=== PATIENT | male | born 1970 | race Caucasian/White ===

== ENCOUNTER 2024-12-10 14:30 | Outpatient (RCR) | payer OTHER, SELFPAY | END 2024-12-15 09:06 | disposition home or self-care (01) | LOC: ANHDMC 14:30 | PROVIDERS: Visit Provider Internal Medicine | DX: E11.65 Type 2 diabetes mellitus with hyperglycemia (principal); Z71.89 Other specified counseling | CPT/HCPCS: G0108; G0109 ==

== ENCOUNTER 2024-12-27 09:31 | Outpatient (CLI) | payer OTHER, SELFPAY ==
--- OUTSIDE RECORDS SUMMARY | 2024-12-27 09:35 | XMS_ITS | Data Portability ---
Author Organization [facility], Main Office Address [address] [place] [address] Care Team Providers Care Encapsulator Name Role Phone SUZY QUINTERO Primary Care Provider SUZY QUINTERO Referring Provider Assessment Encounter Date Assessment Date Assessment LastModified by Organization Details LastModified Time 01/30/2023 01/30/2023 This note is dictated and transcribed by [employer]. Legal Practice Manager variances may occur. Despite proofreading, typographical errors may occur. Not available 01/30/2023 14:56:16 08/28/2023 08/28/2023 This note is dictated and transcribed by [employer]. Legal Practice Manager variances may occur. Despite proofreading, typographical errors may occur. Occasional wrong-word or '[id number]' substitutions may have occurred due to the inherent limitations of voice recording. Read the chart carefully and recognize, using context, where substitutions have occurred. Not available 09/11/2023 12:05:20 Plan of Treatment Reminders Order Date Submit Date Provider Last Modified By Organization Details Last Modified Time Details Appointments None recorded. Lab None recorded. Referral pain management referral 2023 024 Not available 08:18:55 Procedures None recorded. Surgeries None recorded. Imaging None recorded. Medication Orders clotrimazol e 1 % topical cream 2023 024 [facility] #[id number], [address] [place], [place], [id number], 4 09:08:25 clotrimazol e 1 % topical cream 2022 023 [facility] #[id number], [address] [place], [place], [id number], 3 15:23:04 ketoconazol e 2 % topical cream 2022 023 ian Vega [facility] [employer] #[id number], [address] [place], [place], [id number], 4 09:07:13 Patient TargetsNo targets recorded. Patient InstructionsNo instructions recorded. Reason for Referral Pain Management Referral for Pain in both feet Spinal implant for neuropathy Referring Physician: Kirby Daniels, Podiatric Surgery, Encounter Date: 08/28/2023 Problems Name Problem SNOMED Code Status Onset Date Resolution Date Notes Provider Name and Address Organization Details Recorded Time Diabetes mellitus 34260862 Active 2022 Wendy cabrera [place] [employer] [facility] 3 14:44:07 Disorder of eye 417878286 Active 2022 Wendy cabrera [employer] 3 14:44:14 Headache 23378692 Active 2022 Wendy cabrera [facility] 3 14:44:28 Hyperchole sterolemia 12075685 Active 2022 Wendy cabrera [employer] [facility] 3 14:44:38 Obesity 069270691 Active 2022 Wendy cabrera [employer] [facility] [employer] [facility] 3 14:44:49 Onychomyco sis of toenails 427659729 Active 2022 Kirby Daniels DPM [address] [facility], [facility] [address], [place], [address] , [employer] [facility] [employer] [facility] 3 14:55:14 Tinea pedis 4997412 Active 2022 Kirby Daniels DPM [address] [facility], [facility] [address], [place], [address] , [place] - [employer] 3 14:55:18 Diabetic peripheral neuropathy 559965792 Active 2022 Kirby Daniels DPM [address], [place], [address] , [facility] [employer] [facility] 3 15:01:30 Pain in both feet 1211807247224 9102 Active 2023 Kirby Daniels DPM [address], [place], [address] , [facility] [employer] [facility] 4 15:27:12 Notes:RETINOPATHY Problem Notes None recorded. Procedures Surgical History Date Name Laterality Status Provider Name and Address Organization Details Recorded Time 4 Nail Debridement completed Kirby Daniels DPM [address], [place], [address], [facility] [employer] [facility] 09/11/2023 12:03:38 4 other completed Kellie Cross [facility] [employer] [facility] 07/19/2023 11:36:15 3 Nail Debridement completed Kirby Daniels DPM [address], [place], [address], [facility] [employer] [facility] [employer] [facility] 05/29/2023 14:51:46 3 Nail Debridement completed Kirby Daniels DPM [address], [place], [address], [facility] [employer] [facility] 01/30/2023 15:14:50 Imaging Results None recorded. Procedure Notes None recorded. Medical Equipment None Reported. Allergies No known drug allergies Medications Name Sig Start Date Stop Date Status Note LastModified by Organization Details LastModified Time losartan 50 mg tablet TAKE 1 TABLET BY MOUTH EVERY DAY active Not Available Not Available No t Available methocarbam ol 500 mg tablet 01/30 completed Not Available Not Available Not Available atorvastati n 20 mg tablet TAKE 1 TABLET BY MOUTH EVERY EVENING active Not Available Not Available No t Available Lantus U-100 Insulin 100 unit/mL subcutaneou s solution INJECT 30 UNITS UNDER THE SKIN QD 01/30 completed Not Available Not Available Not Available insulin syringe U-100 with needle 1 mL 29 gauge x 12/31 USE QID 01/30 completed Not Available Not Available Not Available sulfamethox azole 800 mg-trimetho prim 160 mg tablet TAKE 1 TABLET BY MOUTH EVERY 12 HOURS active Not Available Not Available No t Available meloxicam 7.5 mg tablet 01/30 completed Not Available Not Available Not Available aspirin 325 mg tablet,fercho yed release active Not Available Not Available Not Available Humalog U-100 Insulin 100 unit/mL subcutaneou s solution INJECT 18 UNITS UNDER THE SKIN PER SLIDING SCALE TID WITH MEALS 01/30 completed Not Available Not Available Not Available [employer] Ultra Test strips TEST BLOOD SUGAR THREE TIMES DAILY active Not Available Not Available No t Available diclofenac 0.1 % eye drops INSTILL 1 DROP INTO LEFT EYE THREE TIMES DAILY [id number] active Not Available Not Available No t Available losartan 25 mg tablet TAKE 1 TABLET BY MOUTH DAILY 01/30 completed Not Available Not Available Not Available brimonidine 0.2 % eye drops INSTILL 1 DROP INTO THE RIGHT EYE BID 01/30 completed Not Available Not Available Not Available gabapentin 300 mg capsule TAKE 1 CAPSULE BY MOUTH THREE TIMES DAILY active Not Available Not Available No t Available pravastatin 20 mg tablet 01/30 completed Not Available Not Available Not Available AmLactin 12 % lotion apply to both feet twice daily 01/30 completed Not Available Not Available Not Available ketoconazol e 2 % topical cream APPLY TO THE AFFECTED AREA OF TOENAILS ONCE DAILY active Not Available Not Available No t Available clotrimazol e 1 % topical cream APPLY TO THE AFFECTED toenails BY TOPICAL ROUTE 2 TIMES PER DAY IN THE MORNING AND EVENING 2023 active Not Available Not Available Not Avai lable insulin lispro (U-100) 100 unit/mL subcutaneou s pen ADMINISTE R 10 UNITS UNDER THE SKIN THREE TIMES DAILY BEFORE MEALS active Not Available Not Available No t Available lancing device active Not Available Not Available Not Available Januvia 50 mg tablet TAKE 2 TABLETS BY MOUTH EVERY DAY active Not Available Not Available No t Available Lantus Solostar U-100 Insulin 100 unit/mL (3 mL) subcutaneou s pen ADMINISTE R 30 UNITS UNDER THE SKIN TWICE DAILY active Not Available Not Available No t Available Easy Touch Alcohol Prep Pads USE THREE TIMES DAILY NEEDED active Not Available Not Available No t Available Ultra Thin Lancets 31 gauge 01/30 completed Not Available Not Available Not Available TRUEplus Pen Needle 31 gauge x 1/4 USE THREE TIMES DAILY DIRECTED active Not Available Not Available No t Available OneTouch Ultra2 Meter TEST THREE TIMES DAILY 01/30 completed Not Available Not Available Not Available OneTouch Delica Plus Lancet 33 gauge TEST THREE TIMES DAILY active Not Available Not Available No t Available Vitals Date Recorded Body height Body mass index (BMI) Body weight Heart rate Respiratory rate Oxygen saturation Oxygen saturation in Arterial blood by Pulse oximetry Systolic And Diastolic Provider Name and Address Organization Details Last Updated DateTime 4 177.8 cm 45.6 kg/m2 721114. 37 g 80 /min 16 /min 98 % 98 % 187/100 mm[Hg] Vicky [facility] [employer] [facility] [employer] [facility] 4 14:58:18 Date Recorded Body height Body mass index (BMI) Body weight Provider Name and Address Organization Details Last Updated DateTime 01/30/2023 177.8 cm 45.6 kg/m2 975103.37 g Wendy Santos [facility] [employer] [facility] 01/30/2023 14:42:02 Date Recorded Heart rate Respiratory rate Oxygen saturation Oxygen saturation in Arterial blood by Pulse oximetry Systolic And Diastolic Provider Name and Address Organization Details Last Updated DateTime 3 75 /min 14 /min 98 % 98 % 159/98 mm[Hg] Vicky [facility] [employer] [facility] [employer] [facility] 3 14:48:59 Date Recorded Body height Body mass index (BMI) Body weight Heart rate Respiratory rate Oxygen saturation Oxygen saturation in Arterial blood by Pulse oximetry Systolic And Diastolic Provider Name and Address Organization Details Last Updated DateTime 3 177.8 cm 45.6 kg/m2 738623. 37 g 72 /min 14 /min 98 % 98 % 169/100 mm[Hg] Vicky Gus [employer] [facility] [employer] [facility] 3 14:09:07 Social History None recorded. Functional Status Question Answer Note LastModified by Organizat ion Details LastModified Time What is your level of alcohol consumption? Occasional Information not available 01/30/2023 Mental Status None recorded. Family History Relationship Description Onset Age of this Age Resolved Age Notes LastModified by Organization Details LastModified Time Unspecified Relation Diabetes mellitus GRANDMicheline A Not available 01/30/2023 14:46:15 Unspecified Relation Hypertensive disorder GRANDM A Not available 01/30/2023 14:46:37 Unspecified Relation Family history of malignant neoplasm DAVID MENDOZA Not available 01/30/2023 14:46:56 Father Hypertensive disorder Not available 2022 14:46:37 Father Family history of malignant neoplasm Not available 2022 14:46:56 Medical History Condition Response DIABETES, TYPE Y HIGH CHOLESTEROL / HYPERLIPIDEMIA Y HEADACHES/MIGRAINES Y OBESITY Y Past Encounters Encounter ID Performer Location Encounter Start Date Encounter Closed Date Diagnosis/Indication Diagnosis SNOMED-CT Code Diagnosis ICD10 Code Diagnosis Note [id number] Kirby Daniels DPM [facility] [place] [address] [address] 01/30/2023 14:41:17 01/30/2023 15:28:14 Onychomycosis of toenails 668160680 B35.1 all toenails spurring 3rd bilateraln ails debrided without incidentfo llow-up in 3-4 months Tinea pedis 5140709 B35. 3 apply ketoconazo le daily for 2 weeks to the plantar feetdaily foot hygienefol low-up as needed Diabetic p eripheral neuropathy 032335730 E11.40 Patient educated on neuropathy , diabetes, diabetic diet, and daily foot exams. Patient is to check feet daily for new wounds, blisters, redness to prevent infection and ulceration s to the feet. Patient will return to clinic in 3 months for diabetic foot workup. [id number] Kirby Daniels DPM [facility] [place] [address] [address] 05/29/2023 14:00:48 05/30/2023 10:27:09 Diabetic peripheral neuropathy 737541827 E11.40 Patient educated on neuropathy , diabetes, diabetic diet, and daily foot exams. Patient is to check feet daily for new wounds, blisters, redness to prevent infection and ulceration s to the feet. Patient will return to clinic in 3 months for diabetic foot workup. Onychomyco sis of toenails 432708501 B35.1 continue ketoconazo lenails debrided without incidentfo llow-up in 3-4 months [id number] Kirby Daniels DPM [facility] [place] [address] [facility] [address] [place] [address] 08/28/2023 14:53:56 09/12/2023 10:28:16 Diabetic peripheral neuropathy 105975506 E11.40 Patient educated on neuropathy , diabetes, diabetic diet, and daily foot exams. Patient is to check feet daily for new wounds, blisters, redness to prevent infection and ulceration s to the feet. Patient will return to clinic in 3 months for diabetic foot workup. Pain in both feet [id number] M79.672 M79.671 Onychomyco sis of toenails 360532024 B35.1 continue ketoconazo lenails debrided without incidentfo llow-up in 3-4 months Health Concerns Section Related Observation LastModified by Organization Detai ls LastModified Time None Recorded Concern Status LastModified by Organization Details LastModified Time None Recorded Advance Directives Directive None Recorded Payers Insurance Date Sequence Insurance Name Policy Number Policy Chahal Covered Member ID Chahal Member ID Guarantor Name 01/30/2023 1 [facility] PRIOR TO 12/16/2020 (MEDICAID REPLACEMENT - HMO) Jamarcus Yang [id number] Jamarcus Yang 02/29/2024 1 [facility] (MEDICAID HMO) [id number] Jamarcus Yang [id number] Jamarcus Yang 08/28/2023 1 [facility] ON OR AFTER 12/16/20 (MEDICAID REPLACEMENT - HMO) Jamarcus Yang [id number] Jamarcus Yang Notes Date Note Type Note Provider Name and Address Organization Details Recorded Time 01/30/2023 text/html . Patient is a 52-year-old male diabetic who presents to the office with complaints of numbness tingling and burning of his feet. Patient denies any history of wounds or injury to the foot. Patient states these sensations are in his feet all the time. Patient is currently on gabapentin which I recommend him continuing. Patient also was educated on daily eating habits and importance of diabetic control to prevent worsening of the sensations. Patient states that he also has discoloration and thickening of his toenails and he has pain at the toenails at times. Patient denies any redness or drainage. Patient denies any treatments for this condition. Patient states the toenails have been like this for several years. Kirby Daniels DPM [address], [place], [address], [facility] 01/30/2023 15:15:35 05/29/2023 text/html . Patient is a 53-year-old male diabetic with neuropathy who returns the office for follow-up. Patient states that his neuropathy has worsened. Patient denies any open wounds or infection. Patient states that he attempted to return to work but was unable to work due to his lower extremities. Patient states that he has been off work since August. Patient denies any other pedal complaints. Kirby Daniels DPM [address], [place], [address], [facility] 05/29/2023 15:21:45 08/28/2023 text/html Patient returns for diabetic foot care denies any open wounds or infection of the feet. Patient denies any calf pain with walking or rest pain. Patient states that the nails are painful due to the length and would like to have them cut as they are difficult to cut. Patient states their blood sugars have been under control. Patient denies any hyper or hypoglycemia. Patient states that he would like to have onychomycosis medication to see if it will help with his nails. Kirby Daniels DPM [address], [place], [address], [facility] 09/11/2023 12:12:06
--- OUTSIDE RECORDS SUMMARY | 2024-12-27 09:35 | XMS_ITS | Data Portability ---
Author Organization [facility] Address [address] [place] [address] Assessment No assessment recorded. Plan of Treatment Reminders Order Date Submit Date Provider Last Modified By Organization Details Last Modified Time Details Appointments NEW PATIENT 30 2024 11:00A M Oliverio Almaguer MD Not available Not available Not available Lab HbA1c (hemoglob in A1c), blood 2024 025 [email or web address] In-Office Order, Internal Use Only DO Not Attach Compendium DO Not Attach Compendium, Do Not Delete/merge, [id number] 09/08/2024 10:54:41 HbA1c (hemoglob in A1c), blood 2023 024 [email or web address] In-Office Order, Internal Use Only DO Not Attach Compendium DO Not Attach Compendium, Do Not Delete/merge, [id number] 04/09/2024 10:31:39 PSA, total, serum or plasma 2023 024 [facility] [address], [address], [place], [address], 02/22/2024 06:20:09 HbA1c (hemoglob in A1c), blood 2023 024 [facility] [address], [address], [place], [address], 05/02/2024 10:18:54 lipid panel, serum 2023 024 [facility], [address], [address], [place], [address], 02/22/2024 06:20:08 CMP, serum or plasma 2023 R[facility], [address], [address], [place], [address], 02/22/2024 06:20:08 testoster one, free + total, serum 2023 024 [facility], [address], [address], [place], [address], 12/27/2023 13:22:46 Referral None recorded. Procedures None recorded. Surgeries None recorded. Imaging None recorded. Medication Orders Ozempic 0.25 mg or 0.5 mg (2 mg/1.5 mL) subcutane ous pen injector 2024 025 [id number], [address] [place], [place], [id number], 09/08/2024 10:54:46 Lantus Solostar U-100 Insulin 100 unit/mL (3 mL) subcutane ous pen 2024 025 [id number], [address] [place] [address], [place], [id number], 09/08/2024 10:54:47 Januvia 50 mg tablet 2023 024 [id number], [address] [place] [address], [place], [id number], 05/12/2024 11:34:12 losartan 100 mg tablet 2023 [facility], [address] [place] [address], [place], [id number], 05/12/2024 11:34:13 amlodipin e 5 mg tablet 2023 024 [facility] #[id number], [address] [place], [place], [id number], 05/12/2024 11:34:13 atorvasta tin 20 mg tablet 2023 024 [facility] #[id number], [address] [place] [address], [place], [id number], 05/12/2024 11:34:11 amlodipin e 5 mg tablet 2023 024 [facility] #[id number], [address] [place] [address], [place], [id number], 04/09/2024 10:50:25 gabapenti n 600 mg tablet 2023 024 [facility] #[id number], [address] [place] [address], [place], [id number], 02/21/2024 11:38:07 losartan 100 mg tablet 2023 024 [facility] #[id number], [address] [place] [address], [place], [id number], 02/21/2024 11:38:08 sildenafi l 50 mg tablet 2023 025 [facility] #[id number], [address] [place], [place], [id number], 09/08/2024 10:25:29 Patient TargetsNo targets recorded. Patient Instructions Encounter Date Encounter Id Patient Instructions Last Modified By Organization Details Last Modified Time 12/04/2023 [id number] cellulitis: care instructions [email or web address] Not available 12/04/2023 16:48:06 A healthy lifestyle: care instructions Not available 12/04/2023 16:48:06 02/21/2024 [id number] diabetic retinopathy: care instructions [email or web address] Not available 02/21/2024 11:37:58 When You Want to Lose Weight: Care Instructions [email or web address] Not available 02/21/2024 11:37:58 A healthy lifestyle: care instructions [email or web address] Not available 02/21/2024 11:37:58 high cholesterol : care instructions [email or web address] Not available 02/21/2024 11:37:58 varicose veins: care instructions [email or web address] Not available 02/21/2024 11:37:58 type 2 diabetes: care instructions [email or web address] Not available 02/21/2024 11:37:58 learning about high blood pressure [email or web address] Not available 02/21/2024 11:37:58 04/09/2024 [id number] type 2 diabetes: care instructions [email or web address] Not available 04/09/2024 10:50:20 learning about high blood pressure Not available 04/09/2024 10:50:20 09/08/2024 [id number] type 2 diabetes: care instructions Not available 09/08/2024 10:54:41 learning about high blood pressure [email or web address] Not available 09/08/2024 10:55:35 Reason for Referral None Reported. Results Created Date Observation Date Name Description Value Unit Range Abnormal Flag Note LastModifiedBy Organization Detail LastModifiedTime 12/24/19 24 12/25/2023 TESTO STERO NE,FR EE AND TOTAL testosterone 421 NG/dL 264-91 6 Adult male refer ence inter marylou is based on a popul ation of healt hy nonob harvinder males (BMI <30) betwe en 19 and 39 years old. Mikki walsh, et.al . JCEM 2017, 102;1 161-1 173. PMID: 02149 103. Not Available [facility] ([facility]) [address], [place], [address], 12/27/2023 13:22:46 12/24/19 24 12/27/2023 TESTO STERO NE,FR EE AND TOTAL free testosterone (direct) 4.2 pg/mL 7.2-24 .0 below low normal Not Available [facility] ([facility]) [address] [facility] [address], [place], [address], 12/27/2023 13:22:46 02/21/20 24 02/22/2024 LIPID PANEL cholesterol, total 160 mg/dL 100-19 9 Not Available [facility] ([facility]) [address] [facility] [place], [address], 02/22/2024 06:20:08 02/21/20 24 02/22/2024 LIPID PANEL triglyceride s 151 mg/dL 0-149 above high normal Not Available [facility] ([facility]) [address] [facility] [place], [address], 02/22/2024 06:20:08 02/21/20 24 02/22/2024 LIPID PANEL HDL cholesterol 48 mg/dL >39 Not Available [facility] ([facility]) [address] [facility] [place], [address], 02/22/2024 06:20:08 02/21/20 24 02/22/2024 LIPID PANEL VLDL cholesterol sadie 26 mg/dL 5-40 Not Available [facility] ([facility]) [address] [facility] [place], [address], 02/22/2024 06:20:08 02/21/20 24 02/22/2024 LIPID PANEL LDL chol calc (rust) 86 mg/dL 0-99 Not Available [facility] ([facility]) [address] [place], [address], 02/22/2024 06:20:08 02/21/20 24 02/22/2024 COMP. METAB OLIC PANEL (14) glucose 279 mg/dL 70-99 above high normal Not Available [facility] ([facility]) [address] [facility] [place], [address], 02/22/2024 06:20:08 02/21/20 24 02/22/2024 COMP. METAB OLIC PANEL (14) BUN 12 mg/dL 6-24 Not Available [facility] ([facility]) [address] [place], [address], 02/22/2024 06:20:08 02/21/20 24 02/22/2024 COMP. METAB OLIC PANEL (14) creatinine 1.00 mg/dL 0.76-1 .27 Not Available [facility] ([facility]) [address] [place], [address], 02/22/2024 06:20:08 02/21/20 24 02/22/2024 COMP. METAB OLIC PANEL (14) eGFR 89 mL/mi n/1.7 3 >59 Not Available [facility] ([facility]) [address] [place], [address], 02/22/2024 06:20:08 02/21/20 24 02/22/2024 COMP. METAB OLIC PANEL (14) BUN/creatini ne ratio 12 9-20 Not Available [facility] ([facility]) [address], [place], [address], 02/22/2024 06:20:08 02/21/20 24 02/22/2024 COMP. METAB OLIC PANEL (14) sodium 136 mmol/ L 134-14 4 Not Available [facility] ([facility]) [address] [place], [address], 02/22/2024 06:20:08 02/21/20 24 02/22/2024 COMP. METAB OLIC PANEL (14) potassium 4.7 mmol/ L 3.5-5. 2 Not Available [facility] ([place] [facility]) [address] [place], [address], 02/22/2024 06:20:08 02/21/20 24 02/22/2024 COMP. METAB OLIC PANEL (14) chloride 99 mmol/ L 96-106 Not Available [facility] ([place] [facility]) [address] [place], [address], 02/22/2024 06:20:08 02/21/20 24 02/22/2024 COMP. METAB OLIC PANEL (14) carbon dioxide, total 22 mmol/ L 20-29 Not Available [facility] ([facility]) [address] [place], [address], 02/22/2024 06:20:08 02/21/20 24 02/22/2024 COMP. METAB OLIC PANEL (14) calcium 8.9 mg/dL 8.7-10 .2 Not Available [facility] ([facility]) [address] [place], [address], 02/22/2024 06:20:08 02/21/20 24 02/22/2024 COMP. METAB OLIC PANEL (14) protein, total 6.7 g/dL 6.0-8. 5 Not Available [facility] ([facility]) [address] [place], [address], 02/22/2024 06:20:08 02/21/20 24 02/22/2024 COMP. METAB OLIC PANEL (14) albumin 4.0 g/dL 3.8-4. 9 Not Available [facility] ([facility]) [address] [place], [address], 02/22/2024 06:20:08 02/21/20 24 02/22/2024 COMP. METAB OLIC PANEL (14) globulin, total 2.7 g/dL 1.5-4. 5 Not Available [facility] ([facility]) [address] [place], [address], 02/22/2024 06:20:08 02/21/20 24 02/22/2024 COMP. METAB OLIC PANEL (14) bilirubin, total 0.4 mg/dL 0.0-1. 2 Not Available [facility] ([facility]) [address] [place], [address], 02/22/2024 06:20:08 02/21/20 24 02/22/2024 COMP. METAB OLIC PANEL (14) alkaline phosphatase 80 IU/L 44-121 Not Available [facility] ([facility]) [address] [place], [address], 02/22/2024 06:20:08 02/21/20 24 02/22/2024 COMP. METAB OLIC PANEL (14) AST (SGOT) 22 IU/L 0-40 Not Available [facility] ([facility]) [address] [place], [address], 02/22/2024 06:20:08 02/21/20 24 02/22/2024 COMP. METAB OLIC PANEL (14) ALT (SGPT) 28 IU/L 0-44 Not Available [facility] ([facility]) [address] [place], [address], 02/22/2024 06:20:08 02/21/20 24 02/22/2024 PROST ATE-S PECIF IC AG prostate specific Ag 0.4 NG/mL 0.0-4. 0 Ann Marie ECLIA metho dolog y. Accor ding to the Ameri can [employer] g[employer] iatio n, Serum PSA shoul d decre ase and remai n at undet ectab le level s after radic al prost atect malcom. The AUA defin es bioch emica l recur rence as an initi al PSA value 0.2 ng/mL or great er follo wed by a subse quent confi rmato ry PSA value 0.2 ng/mL or great er. Value s obtai sanjeev with diffe rent assay metho ds or kits canno t be used inter caldera eably . Resul ts canno t be inter prete d as absol ruby evide nce of the prese nce or absen ce of maximino taylor disea se. Not Available [facility] ([facility]) [address] [place], [address], 02/22/2024 06:20:09 04/09/20 24 04/09/2024 HbA1c (hemo globi n A1c), blood HbA1c 13.4 Not Available In-Office Order Internal Use Only DO Not Attach Compendium DO Not Attach Compendium, Do Not Delete/merge, [id number] 04/09/2024 10:31:21 09/09/19 25 09/08/2024 HbA1c (hemo globi n A1c), blood HbA1c 13.7 Not Available In-Office Order Internal Use Only DO Not Attach Compendium DO Not Attach Compendium, Do Not Delete/merge, [id number] 09/08/2024 10:37:30 Result Notes None recorded. Problems Name Problem SNOMED Code Status Onset Date Resolution Date Notes Provider Name and Address Organization Details Recorded Time Diabetes mellitus 39644245 Active 2018 with neuropath y and eye changes Gene Quiroga MD Attn: Ismael jimenez,[address] [place], [address], [place] [facility] 9 15:05:06 Morbid obesity 532898401 Active 2018 Gene Quiroga MD Attn: Ismael jimenez,[address] [place], [address], [place] [facility] 9 15:05:25 Hyperlipi demia 65416243 Active 2018 Gene Quiroga MD Attn: Ismael jimenez,[address] [place], [address], [place] [facility] 9 15:09:06 Varicose veins of lower extremity 55959542 Active 2018 Gene Quiroga MD Attn: Ismael jimenez,[address] [place], [address], [place] [facility] 9 15:09:28 Uncontrol led type 2 diabetes mellitus 700091077 Active 2022 Gene Quiroga MD Attn: Ismael jimenez,[address] [place], [address], [place] [facility] 3 11:26:28 Essential hypertens ion 64508614 Active 2022 Gene Quiroga MD Attn: Ismael jimenez,[address] [facility], [place], [address], [place] [facility] 3 11:40:31 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 2303796 Active 2022 Gene Quiroga MD Attn: Ismael jimenez,[address] [facility], [place], [address], [place] [facility] 3 11:43:42 Paresthes ia 29083796 Active 2022 Hands and feet Gene Quiroga MD Attn: Ismael tony,[address] [facility], [place], [address], [place] [facility] 3 11:45:41 Screening for malignant neoplasm of colon Active 2022 Gene Quiroga MD Attn: Ismael tony,[address] [facility], [place], [address], [place] [facility] 3 11:47:26 Screening for malignant neoplasm of prostate Active 2022 Gene Quiroga MD Attn: Ismael tony,[address] [facility], [place], [address], [place] [facility] 3 11:47:44 Onychomyc osis 273925221 Active 2022 Gene Quiroga MD Attn: Dennisminerva jimenez,[address] [facility], [place], [address], [place] [facility] 3 11:49:59 Fatigue 77417030 Active 2022 Gnee Quiroga MD Attn: Ismael tony,[address] [facility], [place], [address], [place] [facility] 3 11:54:52 Pain in both feet 125946161877 93310 Active 2023 Gene Quiroga MD Attn: Ismael tony,[address] [facility], [place], [address], [place] [facility] 4 17:22:23 Celluliti s of skin 765371734 Active 2023 axillae Gene Quiroga MD Attn: Ismael jimenez,[address] [facility], [place], [address], [facility] 4 16:43:06 Erectile dysfuncti on 282419038 Active 2023 Gene Quiroga MD Attn: Ismael jimenez,[address] [facility], [place], [address], [facility] - [facility] 4 16:44:12 Testoster one level below reference range 783741199 Active 2023 Low free testoeter one Gene Quiroga MD Attn: Ismael jimenez,[address] [facility], [place], [address], [facility] - [facility] 4 11:31:53 Sciatica 25996094 Active 2023 Gene Quiroga MD Attn: Ismael jimenez,[address] [facility], [place], [address], [facility] 4 11:33:58 Problem Notes Documentation Provider Name and Address Organization Details Recorded Time Endocrinology Consult Note : This document (1 of 1) was received from [email or web address] [address] [email or web address] on 12/15/2024 through Direct Message along with the following message body content: Patient Name: EMMANUEL DUENAS. Patient : 1970. Patient . Michelle Hernandez [facility] 12/16/2024 10:42:10 Medical Equipment None Reported. Allergies No known drug allergies Medications Name Sig Start Date Stop Date Status Note LastModified by Organization Details LastModified Time Prescriptio n - Prior Authorizati on Request active Not Available Not Available N ot Available losartan 50 mg tablet TAKE 1 TABLET BY MOUTH EVERY DAY 04/09 completed Not Available Not Available Not Available gabapentin 600 mg tablet Take 1 tablet(s) 3 times a day by oral route. 2024 active 025 Not Available Not Available Not Available atorvastati n 20 mg tablet TAKE 1 TABLET BY MOUTH EVERY DAY IN THE EVENING active Not Available Not Available No t Available clindamycin HCl 300 mg capsule TAKE 1 CAPSULE BY MOUTH EVERY 6 HOURS FOR 10 DAYS 02/20 completed Not Available Not Available Not Available ibuprofen 800 mg tablet TAKE 1 TABLET BY MOUTH EVERY 8 HOURS active Not Available Not Available No t Available hydrocodone 5 mg-acetamin ophen 325 mg tablet TAKE 1 TABLET BY MOUTH EVERY 6 HOURS NEEDED 04/09 completed Not Available Not Available Not Available Viagra 50 mg tablet Take 1 TABLET BY MOUTH 1 HOUR PRIOR TO SEXUAL ACTIVITY DIRECTED, NOT TO EXCEED 1 IN 24 HOURS. 09/08 completed Not Available Not Available Not Available Lantus U-100 Insulin 100 unit/mL subcutaneou s solution ADMINISTE R 55 UNITS UNDER THE SKIN EVERY DAY BEFORE MEALS 11/07 completed Not Available Not Available Not Available amlodipine 5 mg tablet TAKE 1 TABLET BY MOUTH EVERY DAY active Not Available Not Available No t Available sulfamethox azole 800 mg-trimetho prim 160 mg tablet TAKE 1 TABLET BY MOUTH EVERY 12 HOURS 12/03 completed Not Available Not Available Not Available amoxicillin 500 mg tablet TAKE 1 TABLET BY MOUTH EVERY 8 HOURS active Not Available Not Available No t Available ketorolac 0.5 % eye drops INSTILL 1 DROP IN RIGHT EYE TWICE DAILY FOR 2 WEEKS active Not Available Not Available No t Available Humalog U-100 Insulin 100 unit/mL subcutaneou s solution Inject 15 units twice a day by subcutane ous route with meals for 30 days. 11/07 completed Not Available Not Available Not Available doxycycline monohydrate 100 mg capsule 11/07 completed Not Available Not Available Not Available diclofenac 0.1 % eye drops INSTILL 1 DROP INTO LEFT EYE THREE TIMES DAILY X1WEEK 12/03 completed Not Available Not Available Not Available lisinopril 10 mg tablet Take 1 tablet every day by oral route. 11/07 completed Not Available Not Available Not Available losartan 25 mg tablet TAKE 1 TABLET BY MOUTH DAILY 12/03 completed Not Available Not Available Not Available gabapentin 300 mg capsule TAKE 1 CAPSULE BY MOUTH THREE TIMES DAILY 04/09 completed Not Available Not Available Not Available pravastatin 20 mg tablet 11/07 completed Not Available Not Available Not Available ibuprofen 600 mg tablet TAKE 1 TABLET BY MOUTH EVERY 8 HOURS active Not Available Not Available No t Available ketoconazol e 2 % topical cream APPLY TO THE AFFECTED AREA OF TOENAILS ONCE DAILY 09/08 completed Not Available Not Available Not Available losartan 100 mg tablet TAKE 1 TABLET BY MOUTH EVERY DAY active Not Available Not Available No t Available insulin lispro (U-100) 100 unit/mL subcutaneou s pen ADMINISTE R 10 UNITS UNDER THE SKIN THREE TIMES DAILY BEFORE MEALS active Not Available Not Available No t Available lancing device 11/07 completed Not Available Not Available Not Available Contour Test Strips Use three times daily 2024 active Not Available Not Available Not Avai lable Januvia 50 mg tablet TAKE 2 TABLETS BY MOUTH EVERY DAY active Not Available Not Available No t Available Lantus Solostar U-100 Insulin 100 unit/mL (3 mL) subcutaneou s pen ADMINISTE R 30 UNITS UNDER THE SKIN TWICE DAILY active Not Available Not Available No t Available Easy Touch Alcohol Prep Pads USE THREE TIMES DAILY NEEDED 12/03 completed Not Available Not Available Not Available Ultra Thin Lancets 31 gauge 11/07 completed Not Available Not Available Not Available Trulicity 0.75 mg/0.5 mL subcutaneou s pen injector ADMINISTE R 0.75 MG UNDER THE SKIN WEEKLY active Not Available Not Available No t Available TRUEplus Pen Needle 31 gauge x 1/4 USE THREE TIMES DAILY 2023 active Not Available Not Available Not Avai lable TRUEplus Pen Needle 31 gauge x 3/16 USE WITH INSULIN INJECTION S THREE TIMES DAILY active Not Available Not Available No t Available Ozempic 0.25 mg or 0.5 mg (2 mg/1.5 mL) subcutaneou s pen injector Inject 0.25 mg every week by subcutane ous route. 2024 active Not Available Not Available Not Avai lable OneTouch Ultra2 Meter USE TO TEST BLOOD SUGAR THREE TIMES DAILY active Not Available Not Available No t Available OneTouch Delica Plus Lancet 33 gauge TEST THREE TIMES DAILY 12/03 completed Not Available Not Available Not Available Ozempic 0.25 mg or 0.5 mg (2 mg/3 mL) subcutaneou s pen injector INJECT 0.25MG UNDER THE SKIN ONCE A WEEK active Not Available Not Available No t Available Vitals Date Recorded Body height Body mass index (BMI) Body weight Heart rate Oxygen saturation Oxygen saturation in Arterial blood by Pulse oximetry Systolic And Diastolic Provider Name and Address Organization Details Last Updated DateTime 5 180.34 cm 47.7 kg/m2 652456. 59 g 67 /min 98 % 98 % 146/94 mm[Hg] Miracle Barry [facility] 5 10:28:55 Date Recorded Body height Body mass index (BMI) Body weight Oxygen saturation Oxygen saturation in Arterial blood by Pulse oximetry Heart rate Systolic And Diastolic Provider Name and Address Organization Details Last Updated DateTime 4 180.34 cm 48.1 kg/m2 362792. 37 g 97 % 97 % 71 /min 176/102 mm[Hg] Andreea Guzman MA [facility] 4 16:11:36 Date Recorded Body height Body mass index (BMI) Body weight Oxygen saturation Oxygen saturation in Arterial blood by Pulse oximetry Heart rate Systolic And Diastolic Provider Name and Address Organization Details Last Updated DateTime 4 180.34 cm 48.1 kg/m2 308377. 37 g 98 % 98 % 65 /min 188/104 mm[Hg] Andreea Guzman MA [facility] 4 10:52:40 Date Recorded Body height Body mass index (BMI) Body weight Heart rate Oxygen saturation Oxygen saturation in Arterial blood by Pulse oximetry Systolic And Diastolic Provider Name and Address Organization Details Last Updated DateTime 4 180.34 cm 48 kg/m2 612734. 78 g 66 /min 96 % 96 % 168/110 mm[Hg] Miracle Barry MA [facility] 4 10:14:02 Date Recorded Body height Body mass index (BMI) Body weight Heart rate Oxygen saturation Oxygen saturation in Arterial blood by Pulse oximetry Systolic And Diastolic Provider Name and Address Organization Details Last Updated DateTime 4 180.34 cm 47.8 kg/m2 570220. 18 g 75 /min 95 % 95 % 130/82 mm[Hg] Miracle Barry MA [facility] 4 10:53:09 Social History Question Answer Notes LastModified by Organizat ion Details LastModified Time Tobacco Smoking Status Never Smoker Andreea Guzman [facility] [place] [facility] 12/05/2018 14:34:34 Do You Have An Advance Directive? No Information not available 04/09/2024 Are You Blind Or Do You Have Difficulty Seeing? No Information not available 04/09/2024 What Is Your Level Of Caffeine Consumption? Moderate Information not available 04/09/2024 Are You Deaf Or Do You Have Serious Difficulty Hearing? No Information not available 04/09/2024 What Type Of Diet Are You Following? REGULAR Information not available 04/09/2024 What Was The Date Of Your Most Recent Tobacco Screening? 09/08/2024 Information not available 09/08/2024 What Is Your Relationship Status? Information not available 04/09/2024 Do You Use Your Seat Belt Or Car Seat Routinely? Yes Information not available 04/09/2024 Do You Have Smoke And Carbon Monoxide Detectors In Your Home? Yes Information not available 04/09/2024 Has Tobacco Cessation Counseling Been Provided? No Information not available 11/07/2022 Sex: Male Functional Status Question Answer Note LastModified by Organizat ion Details LastModified Time Do you use any illicit or recreational drugs? No Information not available 04/09/2024 Do you or have you ever used any other forms of tobacco or nicotine? No Information not available 11/07/2022 What is your level of alcohol consumption? Occasional Information not available 04/09/2024 Are you currently employed? No Information not available 04/09/2024 Are you able to care for yourself? Yes Information n ot available 04/09/2024 Mental Status Question Answer Note LastModified by Organization D etails LastModified Time Do you feel stressed (tense, restless, nervous, or anxious, or unable to sleep at night)? [id number] Information not available 04/09/2024 Family History Nothing Reported. Medical History Condition Response Coronary Artery Disease N Other N Atrial Fibrillation N High Blood Pressure Y Thyroid Problems N Kidney or Bladder Problems N Depression N COPD N Blood Clots N GI Problems N Have you had a mammogram in the last yea r? N Skin Problems N Anemia N Heart Attack (AR) N Diabetes Y Anxiety Disorder N Muscle, Joint, or Bone Problems Y Seizures/Epilepsy N Have you had a colonoscopy in the last 1 0 years? N Acid Reflux (GERD) N Cancer N Stroke N Allergies N Asthma N Have you had a PSA blood test in the las t year? Y High Cholesterol Y Hepatitis N Liver Disease N Headaches N Osteoporosis N Heart Failure N Past Encounters Encounter ID Performer Location Encounter Start Date Encounter Closed Date Diagnosis/Indication Diagnosis SNOMED-CT Code Diagnosis ICD10 Code Diagnosis [id number] [facility] [address] [place] [address] [id number] 0 12/05/2018 13:41:56 12/06/2018 10:50:44 Diabetes mellitus 62354644 E11.3291 E11.40 Morbid obesity 993746458 E66.01 Elevated blood-pressure reading without diagnosis of hypertension 394998125 R03.0 Started on Lisinopril [id number] MD Wei Kenney (Adult Med) [address] [place] [address] [phone] 0 11/07/2022 10:51:48 11/08/2022 14:49:14 Uncontrolled type 2 diabetes mellitus 125284052 E11.65 Restart Lantus Pt to call blood glucose readings in two weeks Morbid obesity 865827820 E66.01 Varicose v eins of lower extremity 17782135 I83.90 Wear support socks Essential hypertension 67692632 I10 Hyperlipidemia 12175786 E78.5 Retinopath y due to diabetes mellitus 9669546 E11.319 Paresthesia 68827170 R20 .2 Screening for malignant neoplasm of colon 385422963 Z12.11 Screening for malignant neoplasm of prostate 436296481 Z12.5 Onychomycosis 623648913 B35.1 Fatigue 83823122 R53.83 [id number] MD Wei Kenney (Adult Med) [address] [place] [address] [phone] 0 12/07/2022 12:26:43 12/11/2022 12:03:10 Uncontrolled type 2 diabetes mellitus 486005957 E11.65 Essential hypertension 86139913 I10 [id number] MD Wei Kenney (Adult Med) [address] [place] [address] [phone] 0 07/10/2023 12:53:46 07/16/2023 15:36:49 Uncontrolled type 2 diabetes mellitus 528800415 E11.65 Pt advised to increase lantus to 35 U BID then 40 U in seven days if FBS still greater than 150 mg/dl [id number] MD Wei Kenney (Adult Med) [address] [place] [address] [phone] 0 12/04/2023 15:11:08 12/06/2023 15:05:31 Morbid obesity 873812036 E66.01 Cellulitis of skin 36481 1002 L03.90 Complete antibiotic regimen Erectile dysfunction 860 023594 F52.21 Trial sildenafil [id number] MD Wei Kenney (Adult Med) [address] [place] [address] [phone] 0 02/21/2024 10:34:35 02/22/2024 15:00:08 Erectile dysfunction 364378943 F52.21 referral sent to endocrinol ogy for low free testostero ne Essential hypertension 80937768 I10 Increase losartan Hyperlipidemia 72925774 E78.5 Morbid obesity 698019590 E66.01 Paresthesia 14957807 R20 .2 Increase gabapentin 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 Will likely need to add additional agent Essential hypertension 41441813 I10 Add amlodipine [id number] MD Wei Kenney (Adult Med) [address] [place] [address] [phone] 0 05/12/2024 10:13:20 05/14/2024 12:05:33 Uncontrolled type 2 diabetes mellitus 793075811 E11.65 Advised to increase lispro to 15 U BID. Will likely need to add additional agent Hyperlipidemia 99145381 E78.5 Essential hypertension 37030470 I10 Add amlodipine [id number] Gene Quiroga MD [facility] (Adult Med) [address] [place] [address] [phone] 0 09/08/2024 10:12:27 09/11/2024 15:29:23 Uncontrolled type 2 diabetes mellitus 552699169 E11.65 Continue lispro 15 U BID. Will add Ozempic to regimen Essential hypertension 13761411 I10 Add amlodipine Health Concerns Section Related Observation LastModified by Organization Detai ls LastModified Time None Recorded Concern Status LastModified by Organization Details LastModified Time None Recorded Advance Directives Directive N: Payers Insurance Date Sequence Insurance Name Policy Number Policy Chahal Covered Member ID Chahal Member ID Guarantor Name 11/08/2022 1 [facility] PRIOR TO 12/16/2020 (MEDICAID REPLACEMENT - HMO) Emmanuel Duenas [id number] Emmanuel Duenas 11/08/2022 1 [facility] PRIOR TO 12/16/2020 (MEDICAID REPLACEMENT - HMO) Emmanuel Duenas [id number] Emmanuel Angelesvenger 07/10/2023 1 *SELF PAY* Te gulshan AngelesTrey 09/11/2024 1 [facility] (MEDICAID HMO) [id number] Emmanuel Duenas [id number] Emmanuel Trey 12/07/2022 2 [facility] DOS ON OR AFTER 20 (MEDICAID REPLACEMENT - HMO) Emmanuel Duenas [id number] Emmanuel Trey 01/01/2023 1 [place] [employer] [place] [employer] Emmanuel Duenas [id number] Emmanuel Duenas 10/27/2024 [facility] (MEDICAID HMO) [id number] Emmanuel Duenas [id number] Emmanuel Duenas Notes Date Note Type Note Provider Name and Address Organization Details Recorded Time 12/04/2023 text/html Here for f/u of infection of skin. Has problems with erectile dysfunction Gene Quiroga MD Attn: Accounting, [address] [facility], [place], [address], [place] [facility] 12/04/2023 16:50:43 02/21/2024 text/html Gets abnormal sensation now in his face. Blood glucose levels averaging 200 mg/dl. Is unable to walk much due to foot pain.Also has leg weakness. Complaining of pain pain in lower back that radiates into right leg Gene Quiroga MD Attn: Accounting, 1 [facility], [place], [address], [place] [facility] 02/21/2024 11:38:47 04/09/2024 text/html Here for DM f/u. He often forgets the third insulin lispro injection/. has been using BP med daily as prescribed. No significant benefit in foot pain from increase in gabapentin wd7671 mg/daily. Pain management referral from podiatry did not take his insurance Gene Quiroga MD Attn: Accounting, [address] [facility], [place], [address], [place] [facility] 04/09/2024 10:51:30 05/12/2024 text/html Here for BP f/u. Tolerating med well Gene Quiroga MD Attn: Accounting, [address] [place], [address], [place] [facility] 05/12/2024 11:34:52 09/08/2024 text/html Here for DM f/u. Indicated that he has been using Lantus twice daily and insulin lispro 15 U twice daily. In a little pain from dental work three days ago. FBS still up to 240 mg/dl Gene Quiroga MD Attn: Accounting, [address] [facility], [place], [address], [place] [facility] 09/08/2024 10:55:38
--- OUTSIDE RECORDS SUMMARY | 2024-12-27 09:35 | XMS_ITS | Patient Health Record ---
Author Organization [facility] Address [address] [place] [address] Care Team Providers Care Wood Tool Maker Name Role Phone Lei Caceres Primary Care Provider [phone] Reason For Referral No Information Medications Medication SIG (Take, Route, Frequency, Duration) Notes Start Date End Date Status Test strips for glucometer As directed QID four times a day; Duration: 30 days 05/21/2017 Active Alcohol Swabs 70 % as directed 4 times daily; Duration: 30 days 05/07/2017 Active Aspirin 325 MG 1 tablet Orally Once a day; Duration: 30 day(s) 05/07/2017 Active metFORMIN HCl 500 MG 1 tablet with meals Orally Twice a day; Duration: 30 day(s) 08/29/2017 Active Lancets - as directed 4 times daily; Duration: 30 days 05/07/2017 Active HumaLOG 100 UNIT/ML 26 units per sliding scale Subcutaneous three times daily with meals 05/07/2017 Active BD Insulin Syringe 29G X 1/2 As directed 4 times daily; Duration: 30 days 05/07/2017 Active Lantus 100 UNIT/ML 50 units Subcutaneou s At the time 05/07/2017 Active GLUCOMETER, FORMULARY ANY DIRECTED DIRECTED four times daily; Duration: 360 DAYS 05/07/2017 Active Methocarbamol 500 MG 2 tablets as needed Orally every 6 hrs Not-Taking Meloxicam 7.5 MG 1 tablet Orally Once a day Not-Taking Pravastatin Sodium 20 MG 1 tablet Orally Once a day; Duration: 30 day(s) 06/06/2017 Active Social History Tobacco Use: Social History Observation Description Date Details (start date - stop date) Never Smoker NA - NA Dont use, Tobacco Use/Smoking Question Answer Notes Are you a nonsmoker Additional Findings: Tobacco Non-User Current no n-smoker Problems Problem Type SNOMED Code ICD Code Onset Dates Problem Status W/U Status Risk Notes Problem Type 2 diabetes mellitus with other specified complication (E11.69) Active confirmed Problem Morbid obesity (disorder) (211844317) Morbid (severe) obesity due to excess calories (E66.01) Active confirmed Problem Hyperlipidemia (33398068) Hyperlipidemia, unspecified (E78.5) Active confirmed Problem Type II diabetes mellitus without complication (570998637) Type 2 diabetes mellitus without complication, unspecified superintendent container terminal insulin use status (E11.9) Active confirmed Problem Body mass index 40+ - severely obese (060987957) Body mass index (BMI) of 40.0-44.9 in adult (Z68.41) Active confirmed Problem Diabetic foot (439135572) Diabetic foot (E11.8) Active confirmed Plan Of Treatment Future Test Test Name Order Date Hemoglobin A1c* 11/09/2017 Insurance Providers Payer Name Payer Address Payer Phone Subscriber Number Group Number Insured Name Patient Relationship to Insured Coverage Start Date Coverage End Date [facility] Att Claims Department [address] [place] [address] [id number] Jamarcus Yang Jr Self - patient is the insured 7 MEDICAID [address] [place] [address] [id number] Jamarcus Yang Jr Self - patient is the insured 3 Medical (General) History Medical History History ICD Code DM peripheral neuropathy obesity HLD
[2024-12-27 10:34] LABS: Hematocrit 48.2 % (42.0-52.0); Hemoglobin 16.1 g/dL (14.0-18.0); Mean Corpuscular HGB Conc 33.4 g/dl (32-36); Mean Corpuscular Hemoglobin 29.0 pg (26-34); Mean Corpuscular Volume 86.7 fl (80-100); Platelet Count Result 280 k/mm3 (150-375); Red Blood Count 5.56 M/mm3 (4.6-6.20); White Blood Count 8.9 K/mm3 (4.5-10.0)
[2024-12-27 10:55] LABS: Alanine Aminotransferase 32 U/L (6-50); Albumin Level 3.9 g/dL (3.5-5.1); Alkaline Phosphatase 65 U/L (38-126); Anion Gap 10 mmol/L (4-12); Aspartate Amino Transferase 24 U/L (17-59); Bilirubin,Total 0.3 mg/dL (0.2-1.3); Blood Urea Nitrogen 16 mg/dL (9-20); Calcium 8.9 mg/dL (8.4-10.2); Carbon Dioxide 21 mmol/L (22-30); Chloride 105 mmol/L (98-107); Cholesterol 155 mg/dL (0-200); Estimated Glomerular Filt Rate > 60; Glucose 270 mg/dL (65-110); HDL Direct 45 mg/dL; Potassium 4.6 mmol/L (3.4-5.0); Sodium 136 mmol/L (137-145); Total Protein 7.0 g/dL (6.3-8.2); Triglycerides 133 mg/dL (<150)
[2024-12-27 10:58] LABS: MALB Creatinine Ratio 7.5 mg/g (0-30)
[2024-12-27 11:11] LABS: Free T4 Free Thyroxine 1.06 ng/dL (0.78-2.19)
[2024-12-27 11:31] LABS: Prostate Specific Antigen 0.5 ng/mL (< OR = 4.0); Thyroid Stimulating Hormone 1.760 uIU/mL (0.465-4.680)
[2024-12-28 07:08] LABS: FSH 4.5 mIU/mL (1.5-12.4); LH 9.1 mIU/mL (1.7-8.6)
[2024-12-30 16:08] LABS: Free Testosterone (Direct) 2.9 pg/mL (7.2-24.0)
== END 2024-12-27 09:32 | disposition home or self-care (01) ==
PROVIDERS: PCP Internal Medicine Infectious Disease; Visit Provider Internal Medicine
DX: R79.89 Other specified abnormal findings of blood chemistry (principal); E11.9 Type 2 diabetes mellitus without complications; E66.01 Morbid (severe) obesity due to excess calories; E55.9 Vitamin D deficiency, unspecified; E53.8 Deficiency of other specified B group vitamins; G47.30 Sleep apnea, unspecified
CPT/HCPCS: 36415; 80053; 80061; 82043; 82533; 83001; 83002; 84146; 84153; 84402; 84439; 84443; 85027; G0103

== ENCOUNTER 2025-01-14 10:14 | Outpatient (RCR) | payer OTHER, SELFPAY | END 2025-04-14 23:59 | disposition home or self-care (01) | LOC: ANHDMC 10:14 | PROVIDERS: PCP Internal Medicine Infectious Disease; Visit Provider Internal Medicine | DX: E11.9 Type 2 diabetes mellitus without complications (principal); Z71.89 Other specified counseling | CPT/HCPCS: G0108 ==